=== PATIENT | female | born 1990 | race Caucasian/White ===

== ENCOUNTER → 2019-09-28 15:10 | Observation (INO) ==
[2019-09-28 12:58] LABS: Basophils # 0.1 K/mcL (0.0-0.2); Basophils % 0.4 %; Eosinophils # 0.1 K/mcL (0.0-0.6); Eosinophils % 0.5 %; Hematocrit 31.1 % (35.3-44.9); Hemoglobin 10.8 g/dL (11.5-15.4); Immature Granulocytes % 0.8 % (0-4); Lymphocytes # 2.2 K/mcL (0.6-4.6); Lymphocytes % 17.3 %; Mean Corpuscular HGB Conc 34.7 g/dL (31.6-35.5); Mean Corpuscular Hemoglobin 33.8 pg (28.0-33.3); Mean Corpuscular Volume 97.2 fL (83.0-100.0); Mean Platelet Volume 11.3 fL (9.4-12.4); Monocytes # 0.8 K/mcL (0.0-1.3); Monocytes % 6.2 %; Neutrophils # 9.5 K/mcL (1.6-8.9); Platelet Count 243 K/mcL (140-400); Red Cell Distribution Width 13.2 % (11.5-14.5); Segmented Neutrophils % 74.8 %; White Blood Count 12.7 K/mcL (4.3-11.1)
[2019-09-28 13:04] LABS: Bilirubin,Urine Negative (Negative); Blood,Urine Negative (Negative); Clarity,Urine Cloudy (Clear); Color,Urine Yellow (Yellow); Glucose,Urine (UA) Normal (Normal); Ketones,Urine Negative (Negative); Leukocyte Esterase,Urine Large (Negative); Nitrite,Urine Negative (Negative); Protein,Urine Negative (Neg-Trace); Specific Gravity,Urine 1.012 (1.010-1.025); Urobilinogen,Urine Normal (Normal)
[2019-09-28 13:08] LABS: Amphetamine Screen,Urine Negative ng/mL (Cutoff=1000); Barbiturate Screen,Urine Negative ng/mL (Cutoff=200); Benzodiazepines Screen,Urine Negative ng/mL (Cutoff=200); Cannabinoid Screen,Urine Negative ng/mL (Cutoff = 50); Cocaine Screen,Urine Negative ng/mL (Cutoff= 300); Creatinine,Urine 57 mg/dL; Hyaline Casts,Urine None Seen per lpf (None-Few); Opiate Screen,Urine Negative ng/mL (Cutoff=300); Phencyclidine Screen,Urine Negative ng/mL (Cutoff=25); Protein/Creatinine Ratio,Urine 0.14 mg/mg (0.00-0.20); RBC,Urine 0-3 per hpf (0-3); Squamous Epithelial Cell,Urine Many per lpf (None-Few); WBC,Urine 15-30 per hpf (0-3)
[2019-09-28 13:22] LABS: Alanine Aminotransferase 18 Units/L (7-52); Aspartate Amino Transferase 16 Units/L (13-39); BUN/Creatinine Ratio 11 (6-26); Blood Urea Nitrogen 8 mg/dL (6-20); Lactate Dehydrogenase 175 Units/L (140-271); Uric Acid 5.3 mg/dL (2.3-7.6); eGFR For African Americans > 60 (> 60); eGFR For Non-African Americans > 60 (> 60)
[2019-09-28 13:25] LABS: Bacteria,Urine Many per hpf (None-Few)
[2019-09-28 13:26] LABS: Renal Epithelial Cells,Urine Few per hpf (None-Few)
== END | disposition home or self-care (01) ==
LOC: 1NENULAB
PROVIDERS: ADMIT Registered Nurse; ATTEND Registered Nurse

== ENCOUNTER 2019-10-03 12:00 | Observation (INO) ==
[2019-10-03 12:31] LABS: Basophils % 0.3 %; Eosinophils % 0.3 %; Hematocrit 30.8 % (35.3-44.9); Immature Granulocytes % 0.9 % (0-4); Lymphocytes # 1.8 K/mcL (0.6-4.6); Lymphocytes % 16.4 %; Mean Corpuscular HGB Conc 35.7 g/dL (31.6-35.5); Mean Corpuscular Hemoglobin 33.2 pg (28.0-33.3); Mean Corpuscular Volume 93.1 fL (83.0-100.0); Monocytes # 0.6 K/mcL (0.0-1.3); Monocytes % 5.4 %; Neutrophils # 8.3 K/mcL (1.6-8.9); Platelet Count 226 K/mcL (140-400); Red Blood Count 3.31 M/mcL (3.82-4.97); Red Cell Distribution Width 13.2 % (11.5-14.5); Segmented Neutrophils % 76.7 %; White Blood Count 10.8 K/mcL (4.3-11.1)
[2019-10-03 12:33] LABS: Protein/Creatinine Ratio,Urine 0.15 mg/mg (0.00-0.20)
[2019-10-03 12:34] LABS: Amphetamine Screen,Urine Negative ng/mL (Cutoff=1000); Barbiturate Screen,Urine Negative ng/mL (Cutoff=200); Benzodiazepines Screen,Urine Negative ng/mL (Cutoff=200); Cannabinoid Screen,Urine Negative ng/mL (Cutoff = 50); Cocaine Screen,Urine Negative ng/mL (Cutoff= 300); Opiate Screen,Urine Negative ng/mL (Cutoff=300); Phencyclidine Screen,Urine Negative ng/mL (Cutoff=25)
[2019-10-03 12:45] LABS: Alanine Aminotransferase 20 Units/L (7-52); Aspartate Amino Transferase 19 Units/L (13-39); BUN/Creatinine Ratio 13 (6-26); Blood Urea Nitrogen 9 mg/dL (6-20); Lactate Dehydrogenase 163 Units/L (140-271); Uric Acid 5.5 mg/dL (2.3-7.6); eGFR For African Americans > 60 (> 60); eGFR For Non-African Americans > 60 (> 60)
[2019-10-03] MEDS ORDERED: Acetaminophen 325 MG TABLET PO ONE (13:17)
== END 2019-10-03 14:50 | disposition home or self-care (01) ==
LOC: 1NENULAB
PROVIDERS: ADMIT Registered Nurse; ATTEND Registered Nurse

== ENCOUNTER → 2019-10-12 00:25 | Observation (INO) ==
[2019-10-11 20:58] LABS: Basophils % 0.2 %; Eosinophils % 0.5 %; Hemoglobin 11.2 g/dL (11.5-15.4); Immature Granulocytes % 0.6 % (0-4); Lymphocytes # 2.9 K/mcL (0.6-4.6); Lymphocytes % 33.7 %; Mean Corpuscular Hemoglobin 32.7 pg (28.0-33.3); Mean Corpuscular Volume 93.3 fL (83.0-100.0); Mean Platelet Volume 10.7 fL (9.4-12.4); Monocytes # 0.5 K/mcL (0.0-1.3); Monocytes % 6.1 %; Neutrophils # 5.1 K/mcL (1.6-8.9); Platelet Count 225 K/mcL (140-400); Red Blood Count 3.43 M/mcL (3.82-4.97); Red Cell Distribution Width 13.2 % (11.5-14.5); Segmented Neutrophils % 58.9 %; White Blood Count 8.7 K/mcL (4.3-11.1)
[2019-10-11 21:08] LABS: Amphetamine Screen,Urine Negative ng/mL (Cutoff=1000); Barbiturate Screen,Urine Negative ng/mL (Cutoff=200); Benzodiazepines Screen,Urine Negative ng/mL (Cutoff=200); Cannabinoid Screen,Urine Negative ng/mL (Cutoff = 50); Cocaine Screen,Urine Negative ng/mL (Cutoff= 300); Opiate Screen,Urine Negative ng/mL (Cutoff=300); Phencyclidine Screen,Urine Negative ng/mL (Cutoff=25)
[2019-10-11 21:25] LABS: INR 0.9; Prothrombin Time 10.4 Seconds (9.4-12.1)
[2019-10-11 21:27] LABS: Activated Partial Thrombo Time 29.3 Seconds (26.0-36.0)
== END | disposition home or self-care (01) ==
LOC: 1NENULAB
PROVIDERS: ADMIT Advanced Practice Midwife; ATTEND Advanced Practice Midwife

== ENCOUNTER 2019-10-16 07:56 | Inpatient (IN) ==
[2019-10-16] MEDS ORDERED: miSOPROStoL 25 MCG TABLET VG PRN (08:18)
[2019-10-16] MEDS ORDERED: Naloxone 0.4 MG/ML INJ IVP PRN ×2 (08:18→10:21)
[2019-10-16] MEDS ORDERED: Famotidine 20 MG/2 ML VIAL IVP PRN (08:18)
[2019-10-16] MEDS ORDERED: Metoclopramide 10 MG/2 ML VIAL IVP PRN (08:18)
[2019-10-16] MEDS ORDERED: *HR* Nalbuphine 10 MG/ML AMPUL IVP PRN (08:18)
[2019-10-16] MEDS ORDERED: Azithromycin 500 MG in 0.9 % Sodium Chloride 250 ML IVPB PRN (08:21)
[2019-10-16] MEDS ORDERED: Ringers Solution, Lactated 1,000 ML IVC SCH (08:30)
[2019-10-16 09:16] LABS: Basophils % 0.2 %; Eosinophils # 0.1 K/mcL (0.0-0.6); Eosinophils % 0.6 %; Hematocrit 32.2 % (35.3-44.9); Hemoglobin 11.5 g/dL (11.5-15.4); Immature Granulocytes % 1.5 % (0-4); Lymphocytes # 2.4 K/mcL (0.6-4.6); Lymphocytes % 20.6 %; Mean Corpuscular HGB Conc 35.7 g/dL (31.6-35.5); Mean Corpuscular Volume 92.5 fL (83.0-100.0); Mean Platelet Volume 11.2 fL (9.4-12.4); Monocytes # 0.5 K/mcL (0.0-1.3); Monocytes % 4.4 %; Neutrophils # 8.5 K/mcL (1.6-8.9); Platelet Count 217 K/mcL (140-400); Red Blood Count 3.48 M/mcL (3.82-4.97); Red Cell Distribution Width 13.2 % (11.5-14.5); Segmented Neutrophils % 72.7 %; White Blood Count 11.7 K/mcL (4.3-11.1)
[2019-10-16 09:28] LABS: Amphetamine Screen,Urine Negative ng/mL (Cutoff=1000); Barbiturate Screen,Urine Negative ng/mL (Cutoff=200); Benzodiazepines Screen,Urine Negative ng/mL (Cutoff=200); Cannabinoid Screen,Urine Negative ng/mL (Cutoff = 50); Cocaine Screen,Urine Negative ng/mL (Cutoff= 300); Opiate Screen,Urine Negative ng/mL (Cutoff=300); Phencyclidine Screen,Urine Negative ng/mL (Cutoff=25)
[2019-10-16] MEDS ORDERED: *HR* FentaNYL (PF) 100 MCG/2 ML VIAL EP ONE (10:21)
[2019-10-16] MEDS ORDERED: Ondansetron 4 MG/2 ML VIAL IVP PRN (10:21)
[2019-10-16] MEDS ORDERED: EPHEDrine 50 MG/ML VIAL IVP PRN (10:21)
[2019-10-16] MEDS ORDERED: Ropivacaine/PF 0.2% 20 ML VIAL EP ONE (10:21)
[2019-10-16] MEDS ORDERED: *HR* FentaNYL (PF) 100 MCG/2 ML VIAL ONE (12:17)
[2019-10-16] MEDS: Epidural Premix (fent/bupiv) 110 ML EP SCH ×2 (12:50→18:53)
[2019-10-16] MEDS ORDERED: Oxytocin 20 units/ LR 1000 mL 20 UNIT/1,000 ML BAG IVC SCH (13:15)
[2019-10-16] MEDS ORDERED: *HR* Ropivacaine/PF 0.5% 20 ML VIAL ONE (18:28)
[2019-10-16] MEDS: Ondansetron 4 MG/2 ML VIAL IVP PRN (21:52)
[2019-10-17] MEDS: Epidural Premix (fent/bupiv) 110 ML EP SCH (01:20)
[2019-10-17] MEDS: Ondansetron 4 MG/2 ML VIAL IVP PRN (04:36)
[2019-10-17] MEDS ORDERED: Lidocaine 1% 20 ML MDV ONE (05:26)
[2019-10-17] MEDS ORDERED: *HR* Nalbuphine 10 MG/ML AMPUL ONE (05:51)
[2019-10-17] MEDS ORDERED: *HR* Phenylephrine 10 MG/ML VIAL ONE (06:07)
[2019-10-17] MEDS ORDERED: *HR* FentaNYL (PF) 100 MCG/2 ML VIAL ONE (06:12)
[2019-10-17] MEDS ORDERED: *HR* Oxytocin 10 UNIT/ML VIAL IM ONE (06:41)
[2019-10-17 06:43] LABS: Hematocrit 27.1 % (35.3-44.9)
[2019-10-17 06:45] LABS: Hemoglobin 9.3 g/dL (11.5-15.4)
[2019-10-17] MEDS ORDERED: NON-FORMULARY MEDICATION 1 EACH EACH IVPB ONE (06:45)
[2019-10-17] MEDS ORDERED: 0.9 % Sodium Chloride 250 ML ONE ×2 (07:23→10:18)
[2019-10-17] MEDS ORDERED: Oxytocin 20 units/ LR 1000 mL 20 UNIT/1,000 ML BAG IVC SCH (09:14)
[2019-10-17] MEDS: Prenatal Vit/FA 1 EACH TABLET PO SCH (10:13)
[2019-10-17] MEDS: Ibuprofen 600 MG TABLET PO PRN ×2 (15:21→22:15)
[2019-10-17] MEDS: ceFAZolin sodium 3,000 MG in 0.9 % Sodium Chloride 100 ML IVPB SCH (15:58)
[2019-10-17 18:01] LABS: Hematocrit 25.4 % (35.3-44.9); Hemoglobin 8.8 g/dL (11.5-15.4); Mean Corpuscular HGB Conc 34.6 g/dL (31.6-35.5); Mean Corpuscular Hemoglobin 31.9 pg (28.0-33.3); Mean Platelet Volume 11.2 fL (9.4-12.4); Platelet Count 170 K/mcL (140-400); Red Blood Count 2.76 M/mcL (3.82-4.97); Red Cell Distribution Width 14.8 % (11.5-14.5)
[2019-10-17 18:03] LABS: White Blood Count 18.2 K/mcL (4.3-11.1)
[2019-10-17] MEDS: Lanolin 7 G OINT...G. TP PRN (23:59)
[2019-10-18] MEDS: ceFAZolin sodium 3,000 MG in 0.9 % Sodium Chloride 100 ML IVPB SCH (00:40)
[2019-10-18] MEDS: Ibuprofen 600 MG TABLET PO PRN ×3 (06:01→19:26)
[2019-10-18 06:53] LABS: Basophils % 0.2 %; Eosinophils # 0.1 K/mcL (0.0-0.6); Eosinophils % 0.6 %; Hematocrit 23.1 % (35.3-44.9); Hemoglobin 7.9 g/dL (11.5-15.4); Immature Granulocytes % 0.7 % (0-4); Lymphocytes # 2.3 K/mcL (0.6-4.6); Lymphocytes % 17.5 %; Mean Corpuscular HGB Conc 34.2 g/dL (31.6-35.5); Mean Corpuscular Hemoglobin 32.6 pg (28.0-33.3); Mean Corpuscular Volume 95.5 fL (83.0-100.0); Monocytes # 0.8 K/mcL (0.0-1.3); Monocytes % 6.4 %; Neutrophils # 9.6 K/mcL (1.6-8.9); Platelet Count 133 K/mcL (140-400); Red Blood Count 2.42 M/mcL (3.82-4.97); Red Cell Distribution Width 15.2 % (11.5-14.5); Segmented Neutrophils % 74.6 %; White Blood Count 12.9 K/mcL (4.3-11.1)
[2019-10-18] MEDS: Prenatal Vit/FA 1 EACH TABLET PO SCH (09:19)
[2019-10-18] MEDS: Lanolin 7 G OINT...G. TP PRN (09:19)
[2019-10-18] MEDS: Acetaminophen 325 MG TABLET PO PRN ×2 (13:12→19:26)
[2019-10-18 17:12] LABS: Basophils % 0.1 %; Eosinophils # 0.1 K/mcL (0.0-0.6); Eosinophils % 0.6 %; Hematocrit 24.3 % (35.3-44.9); Hemoglobin 8.2 g/dL (11.5-15.4); Lymphocytes # 2.8 K/mcL (0.6-4.6); Lymphocytes % 18.4 %; Mean Corpuscular HGB Conc 33.7 g/dL (31.6-35.5); Mean Corpuscular Hemoglobin 32.5 pg (28.0-33.3); Mean Corpuscular Volume 96.4 fL (83.0-100.0); Mean Platelet Volume 11.3 fL (9.4-12.4); Monocytes % 6.3 %; Neutrophils # 11.3 K/mcL (1.6-8.9); Platelet Count 191 K/mcL (140-400); Red Blood Count 2.52 M/mcL (3.82-4.97); Segmented Neutrophils % 73.6 %; White Blood Count 15.3 K/mcL (4.3-11.1)
[2019-10-18] MEDS: *HR* HYDROcodone/Acet 5/325 mg TABLET PO PRN (23:42)
[2019-10-19] MEDS: Ibuprofen 600 MG TABLET PO PRN (06:46)
[2019-10-19] MEDS: *HR* HYDROcodone/Acet 5/325 mg TABLET PO PRN (06:46)
[2019-10-19 07:58] VITALS: BP 120/80
[2019-10-19] MEDS: Prenatal Vit/FA 1 EACH TABLET PO SCH (09:01)
== END 2019-10-19 09:59 | disposition home or self-care (01) | DRG 806 ==
LOC: 1NENULAB 07:56 → 1NENUOBS 10-17 13:45
PROVIDERS: ADMIT Obstetrics & Gynecology; ATTEND Obstetrics & Gynecology

== ENCOUNTER 2021-11-05 17:14 | Observation (INO) ==
[2021-11-05 15:14] LABS: Basophils % 0.3 %; Eosinophils # 0.2 K/mcL (0.0-0.6); Hematocrit 36.7 % (35.3-44.9); Hemoglobin 12.5 g/dL (11.5-15.4); Immature Granulocytes % 0.3 % (0-4); Lymphocytes # 3.1 K/mcL (0.6-4.6); Lymphocytes % 27.1 %; Mean Corpuscular HGB Conc 34.1 g/dL (31.6-35.5); Mean Corpuscular Hemoglobin 31.7 pg (28.0-33.3); Mean Corpuscular Volume 93.1 fL (83.0-100.0); Mean Platelet Volume 10.4 fL (9.4-12.4); Monocytes # 0.7 K/mcL (0.0-1.3); Monocytes % 6.1 %; Neutrophils # 7.4 K/mcL (1.6-8.9); Platelet Count 298 K/mcL (140-400); Red Blood Count 3.94 M/mcL (3.82-4.97); Red Cell Distribution Width 12.2 % (11.5-14.5); Segmented Neutrophils % 64.2 %; White Blood Count 11.5 K/mcL (4.3-11.1)
[~2021-11-05 17:14] MED LIST: *HR* FentaNYL (PF) 100 MCG/2 ML VIAL ONE; *HR* Midazolam HCl 2 MG/2 ML VIAL ONE; *HR* OxyCODONE Immed Rel 5 MG TABLET PO PRN; *HR* Propofol 200 MG/20 ML VIAL IVP ONE; CeFAZolin 2,000 MG/120 ML BAG IVPB ONE; Famotidine 20 MG/2 ML VIAL IVP ONE; Ketorolac 30 MG/ML VIAL ONE; Lidocaine -MPF 2% 5 ML VIAL ONE; Ondansetron 4 MG/2 ML VIAL IVP PRN; Ondansetron 4 MG/2 ML VIAL ONE; Promethazine 6.25 MG in Water for inj. (sterile) 20 ML IVPB PRN; Ringers Solution, Lactated 1,000 ML IVC SCH
[2021-11-05] MEDS ORDERED: Acetaminophen IV 1,000 MG/100 ML BAG IVPB ONE (17:25)
[2021-11-05] MEDS ORDERED: Ringers Solution, Lactated 1,000 ML ONE (17:47)
[2021-11-05] MEDS ORDERED: Ibuprofen 800 MG TABLET PO PRN (18:04)
[2021-11-05 19:05] VITALS: BP 142/87; PULSE 100; TEMP 97.8
[2021-11-05] MEDS ORDERED: Methylergonovine 0.2 MG/ML AMPUL IM ONE (19:52)
== END 2021-11-05 19:53 | disposition home or self-care (01) ==
LOC: 1NENULAB
PROVIDERS: ADMIT Obstetrics & Gynecology; ATTEND Obstetrics & Gynecology